=== PATIENT | male | born 1940 | race Caucasian/White ===

== ENCOUNTER → 2018-06-10 | Outpatient (CLI) | payer MEDICARE, OTHER ==
[~2018-06-10] MED LIST: ALBU8.5H IH; AMLO-111 PO; ASPI-1471 PO; BRIM5DRO7 OP; BUDE10.25 IH; CETI-176 PO; CHOL200018 PO; DOCU-416 PO; ERGO500037 PO; EZET1TAB81 PO; FINA5TAB67 PO; LISI-362 PO; LOSA50TA80 PO; METO-253 PO; MOMR ENA; MONT10TA PO; PER PO; TAMS0.4C70 PO
[2018-06-10 12:36] LABS: PLATELET COUNT, AUTOMATED 166 K/uL (150-450)
== END ==
LOC: LAB 11:58
PROVIDERS: ATTEND Internal Medicine
DX: R53.83 Other fatigue (principal)
CPT/HCPCS: 36415; 85025